=== PATIENT | female | born 1970 ===

== ENCOUNTER 2022-02-03 10:39 | Inpatient (IN) | payer OTHER ==
[~2022-02-03] VITALS: Ht 165.1 cm; Wt 89.4 kg
[2022-02-03] MEDS ORDERED: ATORVASTATIN CA10 MG PO (13:35)
[2022-02-03] MEDS ORDERED: ACID REDUCER20 M1 PO (13:35)
[2022-02-03] MEDS ORDERED: ANASTROZOLE1 MG PO (13:36)
[2022-02-03] MEDS ORDERED: VERZENIO150 MG PO (13:36)
[2022-02-03] MEDS ORDERED: [UNRECOGNIZED DRUG - OTHER] PO (13:37)
[2022-02-03] MEDS ORDERED: VOLTAR (13:38)
[2022-02-03] MEDS ORDERED: [UNRECOGNIZED DRUG - OTHER] PO (13:38)
[2022-02-08] MEDS ORDERED: OMEPRAZOLE20 MG (13:37)
[2022-02-08] MEDS ORDERED: VITAMIN D3250 MCG (13:37)
[2022-02-08] MEDS ORDERED: BIOTIN10000 MCG (13:39)
[2022-02-08] MEDS ORDERED: VITAMIN C500 M6 (13:39)
[2022-02-08] MEDS ORDERED: ARTHRITIS PAIN150 GM (13:41)
[2022-02-10] MEDS ORDERED: ULTRACET PO (09:47)
[2022-02-10] MEDS ORDERED: HYOSCYAMINE0.125 M1 SL (09:47)
== END 2022-02-10 11:54 | disposition home or self-care (01) | DRG 330 ==
LOC: SURH 02-07 09:45 → O/R 02-07 09:46 → SURH 02-07 12:30
PROVIDERS: ADMIT Surgery; ATTEND Surgery
PROC: 07BC4ZZ Excision of Pelvis Lymphatic, Percutaneous Endoscopic Approach (ICD-10-PCS; 2022-02-07)
PROC: 8E0ZXY6 Isolation (ICD-10-PCS; 2022-02-07)
PROC: 0DTF4ZZ Resection of Right Large Intestine, Percutaneous Endoscopic Approach (ICD-10-PCS; principal; 2022-02-07 09:45)
DX: D12.0 Benign neoplasm of cecum (principal); D84.89 Other immunodeficiencies; R59.0 Localized enlarged lymph nodes; D64.89 Other specified anemias; E66.8 Other obesity; Z68.32 Body mass index [BMI] 32.0-32.9, adult

== ENCOUNTER 2022-02-12 12:33 | Emergency (ER) | payer OTHER ==
[~2022-02-12] VITALS: Ht 165.1 cm; Wt 87.1 kg
[~2022-02-12 12:33] MED LIST: ACID REDUCER20 M1 PO; ANASTROZOLE1 MG PO; ARTHRITIS PAIN150 GM; ATORVASTATIN CA10 MG PO; BIOTIN10000 MCG; HYOSCYAMINE0.125 M1 SL; OMEPRAZOLE20 MG; ULTRACET PO; VERZENIO150 MG PO; VITAMIN C500 M6; VITAMIN D3250 MCG; VOLTAR; [UNRECOGNIZED DRUG - OTHER] PO; [UNRECOGNIZED DRUG - OTHER] PO
== END 2022-02-12 17:36 | disposition home or self-care (01) ==
LOC: ER 12:33
DX: R42 Dizziness and giddiness (principal); R25.2 Cramp and spasm; E87.5 Hyperkalemia; Z90.49 Acquired absence of other specified parts of digestive tract